=== PATIENT | male | born 1955 | race Caucasian/White ===

== ENCOUNTER 2022-08-10 13:06 | Outpatient (CLI) | payer MEDICARE, MEDICAID, SELFPAY | END 2022-08-10 13:07 | disposition home or self-care (01) | PROVIDERS: PCP Family Medicine; Visit Provider Family Medicine | DX: M25.572 Pain in left ankle and joints of left foot (principal) | CPT/HCPCS: A0425; A0429 ==

== ENCOUNTER 2022-08-10 13:25 | Inpatient (IN) | payer MEDICARE, MEDICAID, SELFPAY ==
[2022-08-10] VITALS (14 sets, daily range): BP systolic 124–146; BP diastolic 72–89; PULSE 67–85; RESP 16–20; TEMP 37.1; O2SAT 97–99; BMI 23.1
--- NOTE | 2022-08-10 14:18 | ED_ITS ---
HPI - General Adult General Time Seen by Provider: 14:18 Date Seen: 08/10/22 Chief complaint: Extremity Pain/Injury, Lower Stated complaint: Infection left leg Time Seen by Provider: 08/10/22 13:41 Source: patient and RN notes reviewed Mode of arrival: EMS Limitations: no limitations History of Present Illness HPI narrative: Patient is coming in with concern of left stump infection with increasing pain and drainage. Over the last 4 days he has noted some bleeding from the inferior aspect of his stump. He is visiting from [place] and admits that he has been up ambulatory and walking more. Last night he started to feel feverish and achy. No headache, no cough, no GI symptoms with this. Today he went to put on his left lower extremity prosthesis and felt like it was wet, took it back off and noted there was blood. He feels that the amputee stump is more swollen and painful. 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 He states he has had revascularization procedures on both lower extremities at least 4 times. The left lower extremity sounds as if it became infected and gangrenous and had to be amputated per patient's report. This happened in [place]. He denies any under lying diabetes, no prior cardiac history, denies any aneurysms. His friend that he is here visiting states that he is quite nervous and frightened about this. Patient tells me that he is not to this patient nor issue relative. Reviewed with patient that he has his ability to maintain his cares, she does not have a sore D to make decision making unless he would so direct us. Related Data Home Medications Medication Instructions Recorded Confirmed amlodipine 10 mg tablet (Norvasc) 10 mg PO DAILY 08/10/22 08/10/22 hydrocodone 5 mg-acetaminophen 325 1 tab PO Q4-6H PRN 08/10/22 08/10/22 mg tablet morphine 30 mg tablet,extended 30 mg PO Q12H 08/10/22 08/10/22 release (MS Contin) pantoprazole 40 mg tablet,delayed 40 mg PO DAILY 08/10/22 08/10/22 release (Protonix) rifaximin 550 mg tablet 550 mg PO BID 08/10/22 08/10/22 Allergies Allergy/AdvReac Type Severity Reaction Status Date / Time No Known Drug Allergies Allergy Verified 08/10/22 13:39 Review of Systems Status of ROS: Reports: 10 or more systems reviewed and unremarkable except as noted in History and below Exam Const: Vital Signs, click to edit/add: Vital Signs - 24 hr 08/10/22 13:31 Temperature 98.7 F Pulse Rate [Pulse Oximeter] 85 Respiratory Rate 20 Blood Pressure [Ri ght Upper Arm] 146/85 H Pulse Oximetry 98 Oxygen Delivery Me thod Room Air Documenting provider has reviewed patient's vital signs: yes Common normals: no apparent distress, oriented x3, no limitations and alert General appearance: cooperative and comfortable Nutritional appearance: thin HENMT: Common normals: normocephalic, head/scalp atraumatic, hearing grossly normal bilaterally, external nose normal, nasal mucous membranes and turbinates normal, moist oral mucous membranes and oropharynx normal Head and scalp: normocephalic and atraumatic Nose: external nose normal and nasal mucous membranes and turbinates normal Eye: Common normals: PERRL, EOMs intact bilaterally, conjunctivae normal and no scleral icterus Conjunctiva: conjunctiva(e) normal Pupil: PERRL Neck & C-Spine: Common normals: full ROM, no lymphadenopathy, supple, no meningeal signs, no JVD and thyroid normal Thyroid: thyroid normal Resp: Common normals: normal respiratory effort, no retractions, no use of accessory muscles and clear to auscultation bilaterally Auscultation: clear to auscultation bilaterally Cardio: Common normals: no JVD, regular rate, regular rhythm, S1 normal heart sound, S2 normal heart sound, no gallops, no clicks and no murmurs Rate: regular rate Rhythm: regular rhythm Heart sounds: S1 normal and S2 normal GI: Common normals: Normal to inspection, nondistended, normoactive bowel sounds present, soft to palpation, non-tender, no hepatosplenomegaly and no masses Palpation: soft and no hepatosplenomegaly Extremity: Other: Has a left lower extremity [id number] amputation. The distal end of this is pink but cooler, along the top edge of that lower flap there is some serosanguineous drainage at the juncture between the reflection of the bottom flap back to the anterior distal stump site. Do not seeing any visible deep tissue here. Superiorly above this there is more warmth and erythema just right around this area. No pre tibial edema above the stump. Has stocking on right lower extremity but there is no pretibial edema that is palpable. Neuro: Common normals: oriented x3, moves all extremities and no focal motor deficits Sensorium/orientation: alert Meningeal signs: no meningeal signs Speech: speech normal Skin: Narrative: Bedoya skin, skin around wound is noted above on the left lower extremity. Course Course Hospital Course: We will establish an IV, obtain blood cultures and appropriate laboratory workup. Will initiate imaging with plain films to see if there is any bony changes of osteomyelitis. I have obtained a culture of the drainage from this distal stump. If there is concern for infection with this patient, he may need to go elsewhere for hospitalization as we really do not have the capacity for revascularization or even adequate testing for such. We will do this initial workup and decide on appropriate further intervention. Reevaluation(s) Reevaluation #1: Have spoken with patient regarding my concern that I fear there is infection starting in this amputee stump. He has gotten his care at [facility] in [place] per report he does give me a card of a medical case manager and a new physician that he is seen. We will make copies of these to see if we can get more medical information on him. Reviewed with the patient that I will be talking to our hospitalist for further guidance is a do think he needs antibiotics and really should come in. Unfortunately, he is extremely difficult to find IV access. We will see if anesthesia can try as 1 of her best nurses was unsuccessful. Our hospitalist is aware of this difficulty and has alternate plans if we are unable to get IV access. Time: 17:10 Consultations Consultation #1: Spoke with Dr. Bernal our evening hospitalist, she agrees that this patient should come in for IV antibiotics and will initiate vancomycin and Zosyn. At this time, I do not feel that there is enough here clinically to necessitate transfer to a higher level of care but that may be necessary if not responding to broad-spectrum IV antibiotics. Time: 17:19 Vital Signs Vital signs: Initial Vital Signs Temperature 98.7 F 08/10/22 13:31 Temperature Source Temporal Artery Scan 08/10/22 13:31 Pulse Rate 85 08/10/22 13:31 Pulse Rhythm 08/10/22 13:31 Respiratory Rate 20 08/10/22 13:31 Blood Pressure 146/85 H 08/10/22 13:31 Blood Pressure Mean 105 08/10/22 13:31 Blood Pressure Position Supine 08/10/22 13:31 Pulse Oximetry 98 08/10/22 13:31 Oxygen Delivery Method 08/10/22 13:31 Vital Signs Temperature 98.7 F 08/10/22 13:31 Pulse Rate 85 08/10/22 13:31 Respiratory Rate 20 08/10/22 13:31 Blood Pressure 146/85 H 08/10/22 13:31 Pulse Oximetry 98 08/10/22 13:31 Oxygen Delivery Method 08/10/22 13:31 Temperature 98.7 F 08/10/22 13:31 Pulse Rate 85 08/10/22 13:31 Respiratory Rate 20 08/10/22 13:31 Blood Pressure 146/85 H 08/10/22 13:31 Pulse Oximetry 98 08/10/22 13:31 Oxygen Delivery Method 08/10/22 13:31 Medical Decision Making Lab Data Lab results reviewed: Yes I reviewed the patient's lab results Labs: Lab Results 08/10/22 08/10/22 08/10/22 Range/Units 15:00 15:00 15:20 WBC 5.39 (4.50-11.00) K/uL RBC 4.09 L (4.30-5.90) m/uL Hgb 13.0 L (13.5-17.5) gm/dL Hct 38.2 (37.0-53.0) % MCV 93 (80-100) fL MCH 32 (26-34) pg MCHC 34 (32-36) gm/dL RDW Coeff of Isabel 14.4 (11.5-15.5) % Plt Count 119 L (140-440) K/uL Neut % (Auto) 77.5 H (42.0-72.0) % Lymph % (Auto) 15.4 L (20-44) % [place] % (Auto) 5.8 (0.0-11.0) % Eos % (Auto) 0.7 (0.0-7.0) % Baso % (Auto) 0.4 (0.0-3.0) % Neut # (Auto) 4.20 (1.7-7.0) K/uL Lymph # (Auto) 0.80 L (0.90-2.90) K/uL [place] # (Auto) 0.30 (0.00-0.90) K/UL Eos # (Auto) 0.04 (0.00-0.50) K/uL Baso # (Auto) 0.02 (0.00-0.30) K/uL Abs Immat Gran (auto) 0.01 (0.00-0.30) K/uL Sodium (135-149) mmol/L Potassium (3.6-5.1) mmol/L Chloride (96-114) mmol/L Carbon Dioxide (20-32) mmol/L BUN (7-30) mg/dL Creatinine (0.5-1.5) mg/dL Estimated Creat Clear Estimated GFR ml/min Glucose (60-115) mg/dL Lactate 1.8 (0.5-1.9) mmol/L Calcium (8.4-10.6) mg/dL Total Bilirubin (0.1-1.5) mg/dL AST (12-35) U/L ALT (4-50) U/L Alkaline Phosphatase (40-150) U/L C-Reactive Protein (0.5-1.0) mg/dL Total Protein (6.0-8.3) g/dL Albumin (3.3-5.0) g/dL Procalcitonin (<0.50) ng/mL SARS-CoV-2 (PCR) Negative SARS-CoV-2 (Negative) 08/10/22 Range/Units 15:40 WBC (4.50-11.00) K/uL RBC (4.30-5.90) m/uL Hgb (13.5-17.5) gm/dL Hct (37.0-53.0) % MCV (80-100) fL MCH (26-34) pg MCHC (32-36) gm/dL RDW Coeff of Isabel (11.5-15.5) % Plt Count (140-440) K/uL Neut % (Auto) (42.0-72.0) % Lymph % (Auto) (20-44) % [place] % (Auto) (0.0-11.0) % Eos % (Auto) (0.0-7.0) % Baso % (Auto) (0.0-3.0) % Neut # (Auto) (1.7-7.0) K/uL Lymph # (Auto) (0.90-2.90) K/uL [place] # (Auto) (0.00-0.90) K/UL Eos # (Auto) (0.00-0.50) K/uL Baso # (Auto) (0.00-0.30) K/uL Abs Immat Gran (auto) (0.00-0.30) K/uL Sodium 132 L (135-149) mmol/L Potassium 4.9 (3.6-5.1) mmol/L Chloride 103 (96-114) mmol/L Carbon Dioxide 21 (20-32) mmol/L BUN 18 (7-30) mg/dL Creatinine 1.1 (0.5-1.5) mg/dL Estimated Creat Clear 72.05 Estimated GFR 74 ml/min Glucose 106 (60-115) mg/dL Lactate (0.5-1.9) mmol/L Calcium 8.7 (8.4-10.6) mg/dL Total Bilirubin 2.1 H (0.1-1.5) mg/dL AST 86 H (12-35) U/L ALT 21 (4-50) U/L Alkaline Phosphatase 275 H (40-150) U/L C-Reactive Protein 2.0 H (0.5-1.0) mg/dL Total Protein 8.7 H (6.0-8.3) g/dL Albumin 4.3 (3.3-5.0) g/dL Procalcitonin 6.03 H (<0.50) ng/mL SARS-CoV-2 (PCR) (Negative) Imaging Data X-ray left tib-fib: Attestation: I have reviewed the pertinent imaging results. My impression: I do not appreciate any acute pathology on my preliminary read. Radiologist's impression: Patient: DELMIS GARRETT Facility:?[facility] Patient ID:?[id number] Site Patient ID:?[id number]. Site :?[id number] Study:?XRay Extremity Left tib/fib-08/10/2022 4:00:04 PM Ordering Physician:Jamila Roberts Final Report: INDICATION: Amputee infection. TECHNIQUE: Left tibia/fibula, 4 views. COMPARISON: None. FINDINGS: Bones: The bones are demineralized. No fractures or bone lesions. Joint spaces: Unremarkable. Soft tissues: Mild diffuse soft tissue swelling and edema. Scattered vascular calcifications. IMPRESSION: No acute or significant findings. Dictated by Darion Goodson MD @ 08/10/2022 4:19:53 PM (Electronic Signature) ECG Data Attestation: I personally reviewed and interpreted this ECG as follows: (Sinus rhythm with PACs. 81 beats per minute. QT corrected 497 milliseconds. No acute ischemic change.) Critical Care Time Critical Care Time Critical Care Time: No Discharge Plan Discharge Clinical Impression: Cellulitis, Peripheral vascular disease Patient Disposition: Admitted As Inpatient Condition: Unchanged
--- NOTE | 2022-08-10 14:27 | CRLHL7_ITS ---
For Patients: As a result of the Cures Act, medical imaging exams and procedure reports are released immediately into your electronic medical record. You may view this report before your referring provider. If you have questions, please contact your health care provider. INDICATION: Amputee infection. TECHNIQUE: Left tibia/fibula, 4 views. COMPARISON: None. FINDINGS: Bones: The bones are demineralized. No fractures or bone lesions. Joint spaces: Unremarkable. Soft tissues: Mild diffuse soft tissue swelling and edema. Scattered vascular calcifications. IMPRESSION: No acute or significant findings. Dictated by Darion Goodson MD @ 08/10/2022 4:19:53 PM (Electronically Signed)
[2022-08-10 15:16] LABS: Basophils Absolute Auto 0.02 K/uL (0.00-0.30); Basophils Percent Auto 0.4 % (0.0-3.0); Eosinophils Absolute Auto 0.04 K/uL (0.00-0.50); Eosinophils Percent Auto 0.7 % (0.0-7.0); Hematocrit 38.2 % (37.0-53.0); Immature Granulocytes Abs Auto 0.01 K/uL (0.00-0.30); Lymphocytes Percent Auto 15.4 % (20-44); Mean Corpuscular HGB Conc 34 gm/dL (32-36); Mean Corpuscular Hemoglobin 32 pg (26-34); Mean Corpuscular Volume 93 fL (80-100); Monocytes Percent Auto 5.8 % (0.0-11.0); Neutrophils Percent Auto 77.5 % (42.0-72.0); Platelet Count* 119 K/uL (140-440); RDW Coefficient of Variation % 14.4 % (11.5-15.5); Red Blood Count 4.09 m/uL (4.30-5.90); White Blood Count* 5.39 K/uL (4.50-11.00)
[2022-08-10 15:19] LABS: Slide Review Reflex No
[2022-08-10 15:24] LABS: Lactate* 1.8 mmol/L (0.5-1.9)
--- NOTE | 2022-08-10 15:47 | ED.NURSE ---
dr chandler aware of inability to start iv. blood has been drawn. is difficult to start ivs on him, but has incredibly poor circulation with chronic disease.
[2022-08-10 15:54] LABS: SARS PCR* Negative SARS-CoV-2 (Negative)
[2022-08-10 16:04] LABS: Albumin* 4.3 g/dL (3.3-5.0); Chloride* 103 mmol/L (96-114)
[2022-08-10 16:05] LABS: Potassium* 4.9 mmol/L (3.6-5.1); Sodium* 132 mmol/L (135-149)
[2022-08-10 16:07] LABS: Creatinine* 1.1 mg/dL (0.5-1.5); Est. Creatinine Clearance* 72.05; Estimated Glomerular Filt Rate 74 ml/min
[2022-08-10 16:08] LABS: Alanine Aminotransferase* 21 U/L (4-50); Alkaline Phosphatase* 275 U/L (40-150); Aspartate Amino Transferase* 86 U/L (12-35); Bilirubin Total* 2.1 mg/dL (0.1-1.5); Blood Urea Nitrogen* 18 mg/dL (7-30); Carbon Dioxide* 21 mmol/L (20-32); Glucose* 106 mg/dL (60-115); Total Protein* 8.7 g/dL (6.0-8.3)
[2022-08-10 16:09] LABS: Calcium* 8.7 mg/dL (8.4-10.6)
[2022-08-10 16:25] LABS: Procalcitonin* 6.03 ng/mL (<0.50)
--- NOTE | 2022-08-10 17:29 | W.PC.EDHO ---
Primary Language: Amharic Preferred Language: Orientation Status: [x] Alert & Oriented [] Slight Confusion [] Known Dx Dementia Transfers By: [x] Assist of 1 [] Assist of 2 [] Lift Description of Symptoms ED Triage Present Problem comes to ed with concerns of a possible infection Description of the stump of his left bka. had an amputation due to gangrene of his left foot 2 years ago, bad circulation hereditary. was walking more than usual on sunday with his prothesis. today noticed increased pain, swelling, redness and warmth of the stump. has an open area that is draining sero- sang drainage on the left stump. ED Triage Date of Onset of 08/07/22 Symptoms Oxygen Administration Pulse Oximetry 98 Oxygen Delivery Method Room Air
--- NOTE | 2022-08-10 17:47 | P.IMHP_ITS ---
Hospitalist- H&P: HPI History of Present Illness Date Seen: 08/10/22 Chief complaint: Infection left leg Narrative: Keith Pitts is a 67 year old male who presented to the emergency room with concerns of infection in his left lower extremity stump. He noted that his stump started leaking about 4 days ago. Has felt subjectively febrile, no other symptoms. No trauma. ER course and findings: - erythema and drainage of an open wound on left stump, cultures collected - normal white blood count, afebrile, elevated procalcitonin at 6 - no acute findings on x-ray History of L foot amputation in 2021, amputation of all 5 toes on the R foot over the past 2-3 years (separate surgeries). Known severe peripheral vascular disease with resultant chronic pain, on daily opiates. Dr. Carlisle in [place], [place] is Vascular Surgeon. Dr. Cris Bobby in [place] was PCP. Also diagnosed with cirrhosis (source unclear), on Rifaximin. History of Hepatitis B and C remotely. History of alcohol overuse, currently no ETOH use. No history of portal HTN, doesn't think he's ever had an EGD. On Amlodipine for essential HTN. Patient smokes socially (0-1 cigarettes most days of the week). 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 No children, not currently partnered. Sister Kanchan Pitts ([phone]) would be medical decision maker if needed. Kanchan lives in [place], [place]. Keith requests DNR/DNI status. Keith is planning to move here, arrived from [place] 2 weeks ago. Was living in a rehab facility in [place], [place] until mid-June, flew to [place] soon after that. Has been staying with his friend Shannon since arrival, hoping to move into [address] [facility] apartments soon. Has an appt with Dr. Swift to establish care on 08/17. [facility] Medical History (Updated 08/10/22 @ 19:17 by Irene Bernal MD) Amputation of one or more toes Atypical mole Chronic pain Cirrhosis of liver Essential hypertension History of fracture of left shoulder Nontraumatic amputation of foot Social History Non-prescribed substance use: denies use Meds Home Medications and Allergies Home Medications Medication Instructions Recorded Confirmed Type amlodipine 10 mg tablet (Norvasc) 10 mg PO DAILY 08/10/22 08/10/22 History hydrocodone 5 mg-acetaminophen 325 1 tab PO Q4-6H PRN 08/10/22 08/10/22 History mg tablet morphine 30 mg tablet,extended 30 mg PO Q12H 08/10/22 08/10/22 History release (MS Contin) pantoprazole 40 mg tablet,delayed 40 mg PO DAILY 08/10/22 08/10/22 History release (Protonix) rifaximin 550 mg tablet 550 mg PO BID 08/10/22 08/10/22 History Allergies Allergy/AdvReac Type Severity Reaction Status Date / Time No Known Drug Allergies Allergy Verified 08/10/22 13:39 Exam Narrative: Exam Narrative: GEN: Alert HEENT: Normal external ears, EOMIs bilaterally, no scleral icterus CV: RRR, No concerning murmurs, rubs, or gallops R: LCTA bilaterally without concerning wheezing, rales, or rhonchi Ext: Bilateral lower extremities with hyperpigmented skin changes consistent with PVD, diminished peripheral pulse over RLE. Right foot not formally examined. Stump on left lower extremity exhibits an open skin wound with mild serosanguineous drainage and surrounding erythema. There is no crepitus around the area, it is moderately tender to palpation. Skin: Atypical nevus noted on chest, 9mm in diameter with irregular borders Neuro: Nonfocal, no resting tremor Psych: Appropriate Const: Vital Signs, click to edit/add: Vital Signs - 24 hr 08/10/22 13:31 Temperature 98.7 F Pulse Rate [Pulse Oximeter] 85 Respiratory Rate 20 Blood Pressure [Ri ght Upper Arm] 146/85 H Pulse Oximetry 98 Oxygen Delivery Me thod Room Air Hospitalist - H&P: Result Labs Labs: Short CBC 08/10/22 Range/Units 15:00 WBC 5.39 (4.50-11.00) K/uL Hgb 13.0 L (13.5-17.5) gm/dL Hct 38.2 (37.0-53.0) % Plt Count 119 L (140-440) K/uL BMP 08/10/22 15:40 Sodium 132 L Potassium 4.9 Chloride 103 Carbon Dioxide 21 BUN 18 Creatinine 1.1 Glucose 106 Calcium 8.7 Liver Function 08/10/22 Range/Units 15:40 Total Bilirubin 2.1 H (0.1-1.5) mg/dL AST 86 H (12-35) U/L ALT 21 (4-50) U/L Alkaline Phosphatase 275 H (40-150) U/L Albumin 4.3 (3.3-5.0) g/dL Assessment and Plan Assessment and plan (1) Wound infection: Status: Acute Assessment and Plan: - Cultures obtained and pending - Start Vancomycin and Zosyn - Wound care consult - Consider MRI pending clinical course (2) Cellulitis: Status: Acute (3) Peripheral vascular disease: Status: Acute Assessment and Plan: - will attempt to obtain outpatient records, consider addition of baby aspirin and statin to current medication regimen upon discharge (4) Cirrhosis of liver: Status: Acute Assessment and Plan: - Continue Rifaximin - Routine outpatient f/u for chronic liver disease, will attempt to obtain outpatient records to obtain some disease clarity (5) Chronic pain: Status: Acute Assessment and Plan: - Continue home medications (6) Atypical mole: Status: Acute Assessment and Plan: - close outpatient f/u Plan - per above - Lovenox for prophylaxis - Patient requests DNR/DNI status
[2022-08-10] MEDS: MORPHINE 30 MG TABLET.ER PO (20:16)
[2022-08-10] MEDS: HYDROCODONE-ACETAMIN 5-325 MG 1 TAB PO (20:17)
--- NOTE | 2022-08-10 20:55 | CRLHL7_ITS ---
For Patients: As a result of the Century Cures Act, medical imaging exams and procedure reports are released immediately into your electronic medical record. You may view this report before your referring provider. If you have questions, please contact your health care provider. Indication: PICC line placement Technique: Grayscale ultrasound of the right basilic vein and right internal jugular vein. IMPRESSION: Ultrasound guidance for right arm PICC line placement. Dictated by Antonio Haley MD @ 08/11/2022 11:07:49 AM (Electronically Signed)
[2022-08-10] MEDS: ENOXAPARIN 40 MG/0.4 ML INJ SUBCUT (21:20)
--- NOTE | 2022-08-10 22:53 | CRLHL7_ITS ---
For Patients: As a result of the Cures Act, medical imaging exams and procedure reports are released immediately into your electronic medical record. You may view this report before your referring provider. If you have questions, please contact your health care provider. INDICATION: PICC placement. TECHNIQUE: Chest 1 views. COMPARISON: None. FINDINGS: Lines and tubes: Right approach PICC has its tip at the atrial caval junction. Lungs: Clear lungs. No consolidation. Pleura: No pleural effusion or pneumothorax. Heart and Mediastinum: The cardiomediastinal silhouette is normal. The vessels are unremarkable. Bones: Unremarkable. IMPRESSION: No acute cardiopulmonary disease. Dictated by Darion Goodson MD @ 08/10/2022 11:25:40 PM (Electronically Signed)
[2022-08-11] VITALS (7 sets, daily range): BP systolic 129–147; BP diastolic 70–80; PULSE 67–74; RESP 12–16; TEMP 36.6–36.9; O2SAT 93–100; BMI 23.0
[2022-08-11] MEDS: PIPERACILLIN/TAZOBACTAM 3.375 GM in 0.9 % SODIUM CHLORIDE Mini-bag 100 ML IVPB ×4 (00:17→23:40)
--- NOTE | 2022-08-11 06:55 | PC.NURSE ---
pt cooperative. [id number]. No c/o pain, stated he was comfortable. Pt stated he is unable to apply weight to his right leg, and refused to pivot transfer. Pt uses urinal. Bilat LE reddened and dry. Left stump wrapped with Tefla and kerlix, CDI. Afebrile.
[2022-08-11 07:15] LABS: Basophils Percent Auto 0.7 % (0.0-3.0); Eosinophils Percent Auto 2.2 % (0.0-7.0); Hematocrit 33.4 % (37.0-53.0); Hemoglobin* 11.3 gm/dL (13.5-17.5); Lymphocytes Percent Auto 34.1 % (20-44); Mean Corpuscular HGB Conc 34 gm/dL (32-36); Mean Corpuscular Hemoglobin 32 pg (26-34); Mean Corpuscular Volume 94 fL (80-100); Monocytes Percent Auto 8.1 % (0.0-11.0); Neutrophils Percent Auto 54.9 % (42.0-72.0); Platelet Count* 108 K/uL (140-440); RDW Coefficient of Variation % 14.4 % (11.5-15.5); Red Blood Count 3.54 m/uL (4.30-5.90)
[2022-08-11 07:20] LABS: Slide Review Reflex No
[2022-08-11] MEDS: MORPHINE 30 MG TABLET.ER PO ×2 (07:22→19:52)
[2022-08-11 07:31] LABS: Albumin* 2.9 g/dL (3.3-5.0); Chloride* 105 mmol/L (96-114); Sodium* 136 mmol/L (135-149)
[2022-08-11 07:32] LABS: Potassium* 3.6 mmol/L (3.6-5.1)
[2022-08-11 07:34] LABS: Alanine Aminotransferase* 14 U/L (4-50); Alkaline Phosphatase* 229 U/L (40-150); Aspartate Amino Transferase* 37 U/L (12-35); Blood Urea Nitrogen* 19 mg/dL (7-30); Carbon Dioxide* 27 mmol/L (20-32); Creatinine* 1.2 mg/dL (0.5-1.5); Est. Creatinine Clearance* 66.04; Estimated Glomerular Filt Rate 67 ml/min; Glucose* 84 mg/dL (60-115); Total Protein* 6.2 g/dL (6.0-8.3)
[2022-08-11 07:35] LABS: Calcium* 8.1 mg/dL (8.4-10.6)
[2022-08-11] MEDS: HYDROCODONE-ACETAMIN 5-325 MG 1 TAB PO ×3 (08:11→21:17)
[2022-08-11] MEDS: OMEPRAZOLE 20 MG CAPSULE DR 40 MG PO (08:49)
[2022-08-11] MEDS: AMLODIPINE 10 MG TABLET PO (08:49)
[2022-08-11] MEDS: RIFAXIMIN 550 MG PO ×2 (08:50→21:16)
--- NOTE | 2022-08-11 10:19 | CRLHL7_ITS ---
For Patients: As a result of the Cures Act, medical imaging exams and procedure reports are released immediately into your electronic medical record. You may view this report before your referring provider. If you have questions, please contact your health care provider. HISTORY: History of previous amputation. Now with open wound and drainage. TECHNIQUE: Routine ankle protocol. FINDINGS: There are no previous studies for comparison. There has been previous amputation in the junction between the midfoot and hindfoot. There is a likely soft tissue wound or contracture seen along the anterior portion of the stump overlying the region of the distal talus. In this vicinity there is increased T2 signal intensity in the soft tissues as well as the distal talus with corresponding T1 signal abnormality. These findings are consistent with osteomyelitis of the distal talus. There is additional bone marrow edema in the distal calcaneus which could also represent an additional site of osteomyelitis but this appears further from the wound in the talus. Lastly there is marrow edema in the distal tibia but this is not adjacent to the wound and is of uncertain significance. No soft tissue fluid collection is noted to suggest abscess. No ankle or subtalar joint effusion is noted. IMPRESSION: Evidence for cellulitis and apparent soft tissue wound anteriorly. There are findings consistent with osteomyelitis of the distal talus and possibly the calcaneus. No findings for soft tissue abscess. Dictated by Joni Shah MD @ 08/11/2022 1:17:15 PM (Electronically Signed)
--- NOTE | 2022-08-11 11:13 | P.IMPN_ITS ---
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 Cox's advice to avoid prostetics, do wet/dry dressings and have patient f/u with wound care as outpatient next week, pending MRI results. * Obtain MRI L ankle/foot * Continue vanco/zosyn, monitor CBC with recheck in am. Also recheck CRP in am. Does not appear septic at this time. Await MRI results and wound culture results. * PT/OT to eval and treat, work with patient to use crutches so he can avoid use of * Continue low dose lovenox for VTE prophylaxis, monitor Plt count and d/c lovenox if plt <80. * CKD stable. Monitor Cr daily while on vanco/zosyn combo. * Cirrhosis, has elevated LFTs with some improvement overnight. Keep outpatient f/u with GI in a few weeks. Subjective Time Seen by Provider: 09:45 Date Seen: 08/11/22 Interval history: C/o feeling weak today. Pain in left stump is about the same. No other complaints. EXAM General: No acute distress. Does not appear ill. Awake, alert, oriented x3. Very hard of hearing without hearing aids. Able to hear normal voice volume with hearing aids. No pallor. No jaundice. Oropharynx: Clear. Mucous membranes moist. Cardiovascular: Regular rate and rhythm. No murmurs, gallops, or rubs. Respiratory: Clear to auscultation bilaterally. No wheezes or crackles. Abdomen: Bowel sounds present. Soft, nondistended, nontender. Extremities: Bilateral lower extremity venous stasis changes with hyperpigmentation circumferentially around both shins and calves. Right foot has well-healed surgical absence of all toes with some small lense-shaped open areas along otherwise well-healed surgical scars of the foot. There is no drainage from these and no erythema or purulence. No tenderness to palpation of this foot. Left stump is bandaged, these were removed and there is a 3-4 cm open area anteriorly along a surgical scar that is frankly purulent with no fluctuance. Mild erythema and tenderness around wound, especially inferiorly. Exam Const: Vital Signs, click to edit/add: Vital Signs - 24 hr 08/10/22 13:31 08/10/22 14:00 08/10/22 14:30 Temperature 98.7 F Pulse Rate [Pulse Oximeter] 85 76 78 Respiratory Rate 20 18 18 Blood Pressure [Le ft Arm] Blood Pressure [Ri ght Upper Arm] 146/85 H 134/74 127/79 Pulse Oximetry 98 97 [facility] Room [facility] 08/10/22 15:00 08/10/22 15:30 08/10/22 16:00 Temperature Pulse Rate [Pulse Oximeter] 76 79 Respiratory Rate 16 16 Blood Pressure [Le ft Arm] Blood Pressure [Ri ght Upper Arm] 128/75 143/85 H 135/77 Pulse Oximetry 99 [facility] 08/10/22 16:30 08/10/22 17:00 08/10/22 17:30 Temperature Pulse Rate [Pulse Oximeter] 79 71 Respiratory Rate 18 16 Blood Pressure [Le ft Arm] Blood Pressure [Ri ght Upper Arm] 146/81 H 124/74 130/72 Pulse Oximetry 98 97 [facility] Room Air 08/10/22 18:00 08/10/22 18:30 08/10/22 13:45 Temperature Pulse Rate [Pulse Oximeter] 74 78 Respiratory Rate 16 Blood Pressure [Le ft Arm] Blood Pressure [Ri ght Upper Arm] 137/89 129/74 Pulse Oximetry 99 99 98 [facility] Room Air 08/10/22 21:05 08/11/22 03:00 08/10/22 23:00 Temperature 98.7 F 98.5 F Pulse Rate [Pulse Oximeter] 71 67 67 Respiratory Rate 16 16 Blood Pressure [Le ft Arm] 139/77 137/70 Blood Pressure [Ri ght Upper Arm] Pulse Oximetry 99 93 Oxygen Delivery Me thod Room Air Room Air 08/11/22 07:00 08/11/22 07:00 Temperature 98 F Pulse Rate [Pulse Oximeter] 72 72 Respiratory Rate 12 12 Blood Pressure [Le ft Arm] 131/73 Blood Pressure [Ri ght Upper Arm] Pulse Oximetry 96 Oxygen Delivery Me thod Room Air Documenting provider has reviewed patient's vital signs: yes Labs Labs: Laboratory Results - last 24 hr 08/10/22 08/10/22 08/10/22 15:00 15:00 15:20 WBC 5.39 RBC 4.09 L Hgb 13.0 L Hct 38.2 MCV 93 MCH 32 MCHC 34 RDW Coeff of Isabel 14.4 Plt Count 119 L Neut % (Auto) 77.5 H Lymph % (Auto) 15.4 L [place] % (Auto) 5.8 Eos % (Auto) 0.7 Baso % (Auto) 0.4 Neut # (Auto) 4.20 Lymph # (Auto) 0.80 L [place] # (Auto) 0.30 Eos # (Auto) 0.04 Baso # (Auto) 0.02 Abs Immat Gran (auto) 0.01 Sodium Potassium Chloride Carbon Dioxide BUN Creatinine Estimated Creat Clear Estimated GFR Glucose Lactate 1.8 Calcium Total Bilirubin AST ALT Alkaline Phosphatase C-Reactive Protein Total Protein Albumin Procalcitonin SARS-CoV-2 (PCR) Negative SARS-CoV-2 08/10/22 08/11/22 08/11/22 15:40 06:15 06:15 WBC 2.70 L RBC 3.54 L Hgb 11.3 L Hct 33.4 L MCV 94 MCH 32 MCHC 34 RDW Coeff of Isabel 14.4 Plt Count 108 L Neut % (Auto) 54.9 Lymph % (Auto) 34.1 [place] % (Auto) 8.1 Eos % (Auto) 2.2 Baso % (Auto) 0.7 Neut # (Auto) 1.50 L Lymph # (Auto) 0.90 [place] # (Auto) 0.20 Eos # (Auto) 0.10 Baso # (Auto) 0.00 Abs Immat Gran (auto) 0.00 Sodium 132 L 136 Potassium 4.9 3.6 Chloride 103 105 Carbon Dioxide 21 27 BUN 18 19 Creatinine 1.1 1.2 Estimated Creat Clear 72.05 66.04 Estimated GFR 74 67 Glucose 106 84 Lactate Calcium 8.7 8.1 L Total Bilirubin 2.1 H 1.0 AST 86 H 37 H ALT 21 14 Alkaline Phosphatase 275 H 229 H C-Reactive Protein 2.0 H Total Protein 8.7 H 6.2 Albumin 4.3 2.9 L Procalcitonin 6.03 H SARS-CoV-2 (PCR)
--- NOTE | 2022-08-11 13:10 | P.GSCN_ITS ---
History of Present Illness Consult details Date Seen: 08/11/22 Consult date: 08/11/22 Narrative: 67-year-old male was admitted to the hospital with left lower leg wound and I was asked by Dr. Stone to see him in consultation. Patient states that he recently moved to [place] from [place]. He used to ride a scooter for mobility but since his friend has a lot of rugs on the floor, patient was forced to wear his left leg prosthesis. Patient is fairly new to this left leg prosthesis. He states that he started to notice pain at his left lower leg stump about 4 days ago. Patient had a left foot amputation over 2 years ago. This was done for gangrene and infection. Patient has bilateral peripheral vascular disease and also had right toes amputated. He had RFA procedures to revascularize his blood supply in bilateral lower legs. Review of Systems Narrative: General: no fevers HENT: no problems swallowing CV: no shortness of breath Resp: no cough GI: No nausea, vomiting, abdominal pain : no dysuria, no increased urinary frequency, no hematuria Skin: See above Musculoskeletal: no back pain Neuro: Patient can pivot on the right leg and overall denies muscle weakness. However needs help with mobility. Psyche: no depression, no anxiety PFSH PFSH Medical History (Updated 08/11/22 @ 13:18 by David Cox MD) Amputation of one or more toes Atypical mole Chronic pain Cirrhosis of liver Essential hypertension History of fracture of left shoulder Nontraumatic amputation of foot Wound of left foot Surgical History (Updated 08/11/22 @ 13:15 by David Cox MD) Hx of vascular surgery S/P amputation of foot Social History Smoking Status: Never smoker Do you use any of these nicotine containing products: None How often do you have a drink containing alcohol: never AUDIT-C Alcohol total score: 0 Non-prescribed substance use: denies use Caffeine: Yes (2 sodas/day) service: Yes Meds Home Medications and Allergies Home Medications Medication Instructions Recorded Confirmed Type amlodipine 10 mg tablet (Norvasc) 10 mg PO DAILY 08/10/22 08/10/22 History hydrocodone 5 mg-acetaminophen 325 1 tab PO Q4-6H PRN 08/10/22 08/10/22 History mg tablet morphine 30 mg tablet,extended 30 mg PO Q8H 08/10/22 08/11/22 History release (MS Contin) pantoprazole 40 mg tablet,delayed 40 mg PO DAILY 08/10/22 08/10/22 History release (Protonix) rifaximin 550 mg tablet 550 mg PO BID 08/10/22 08/10/22 History ferrous sulfate 325 mg (65 mg 325 mg PO Q OTHER DAY 08/11/22 08/11/22 History iron) tablet (Lexa-Time) lactulose 10 gram/15 mL oral 30 g PO BID PRN 08/11/22 08/11/22 History solution (Enulose) Allergies Allergy/AdvReac Type Severity Reaction Status Date / Time No Known Drug Allergies Allergy Verified 08/10/22 13:39 Exam Narrative: Exam Narrative: General appearance: Alert, cooperative, and in no distress Pulmonary: Chest symmetric, breathing is nonlabored Extremities: In bilateral lower extremities there is skin discoloration from venous stasis. The right lower leg is sensitive to palpation. The right foot with well-healed surgical incision s/p toe amputation. There is no cellulitis noted in the right leg. The left leg amputation incision has an open area anteriorly. The open areas approximately 1.5 x 0.8 cm. I am able to palpate the bone anteriorly. There is no soft tissue coverage over the bone. The tissues superior to the wound are edematous with some hyperemia. Psychiatric: Alert, cooperative, normal affect. Const: Vital Signs, click to edit/add: Vital Signs - 24 hr 08/10/22 13:31 08/10/22 14:00 08/10/22 14:30 Temperature 98.7 F Pulse Rate [Pulse Oximeter] 85 76 78 Respiratory Rate 20 18 18 Blood Pressure [Le ft Arm] Blood Pressure [Ri ght Upper Arm] 146/85 H 134/74 127/79 Pulse Oximetry 98 97 98 Oxygen Delivery Me thod Room Air Room Air Room Air 08/10/22 15:00 08/10/22 15:30 08/10/22 16:00 Temperature Pulse Rate [Pulse Oximeter] 76 79 Respiratory Rate 16 16 Blood Pressure [Le ft Arm] Blood Pressure [Ri ght Upper Arm] 128/75 143/85 H 135/77 Pulse Oximetry 99 Oxygen Delivery Me thod Room Air 08/10/22 16:30 08/10/22 17:00 08/10/22 17:30 Temperature Pulse Rate [Pulse Oximeter] 79 71 Respiratory Rate 18 16 Blood Pressure [Le ft Arm] Blood Pressure [Ri ght Upper Arm] 146/81 H 124/74 130/72 Pulse Oximetry 98 97 Oxygen Delivery Me thod Room Air Room Air 08/10/22 18:00 08/10/22 18:30 08/10/22 13:45 Temperature Pulse Rate [Pulse Oximeter] 74 78 Respiratory Rate 16 Blood Pressure [Le ft Arm] Blood Pressure [Ri ght Upper Arm] 137/89 129/74 Pulse Oximetry 99 99 98 Oxygen Delivery Me thod Room Air Room Air 08/10/22 21:05 08/11/22 03:00 08/10/22 23:00 Temperature 98.7 F 98.5 F Pulse Rate [Pulse Oximeter] 71 67 67 Respiratory Rate 16 16 Blood Pressure [Le ft Arm] 139/77 137/70 Blood Pressure [Ri ght Upper Arm] Pulse Oximetry 99 93 Oxygen Delivery Wa thod Room Air Room Air 08/11/22 07:00 08/11/22 07:00 08/11/22 11:00 Temperature 98 F 98 F Pulse Rate [Pulse Oximeter] 72 72 70 Respiratory Rate 12 12 14 Blood Pressure [Le ft Arm] 131/73 129/70 Blood Pressure [Ri ght Upper Arm] Pulse Oximetry 96 100 Oxygen Delivery Me thod Room Air Room Air Results Labs Labs: Abnormal lab results 08/10/22 08/10/22 08/11/22 Range/Units 15:00 15:40 06:15 WBC 2.70 L (4.50-11.00) K/uL RBC 4.09 L 3.54 L (4.30-5.90) m/uL Hgb 13.0 L 11.3 L (13.5-17.5) gm/dL Hct 33.4 L (37.0-53.0) % Plt Count 119 L 108 L (140-440) K/uL Neut % (Auto) 77.5 H (42.0-72.0) % Lymph % (Auto) 15.4 L (20-44) % Neut # (Auto) 1.50 L (1.7-7.0) K/uL Lymph # (Auto) 0.80 L (0.90-2.90) K/uL Sodium 132 L (135-149) mmol/L Calcium (8.4-10.6) mg/dL Total Bilirubin 2.1 H (0.1-1.5) mg/dL AST 86 H (12-35) U/L Alkaline Phosphatase 275 H (40-150) U/L C-Reactive Protein 2.0 H (0.5-1.0) mg/dL Total Protein 8.7 H (6.0-8.3) g/dL Albumin (3.3-5.0) g/dL Procalcitonin 6.03 H (<0.50) ng/mL 08/11/22 Range/Units 06:15 WBC (4.50-11.00) K/uL RBC (4.30-5.90) m/uL Hgb (13.5-17.5) gm/dL Hct (37.0-53.0) % Plt Count (140-440) K/uL Neut % (Auto) (42.0-72.0) % Lymph % (Auto) (20-44) % Neut # (Auto) (1.7-7.0) K/uL Lymph # (Auto) (0.90-2.90) K/uL Sodium (135-149) mmol/L Calcium 8.1 L (8.4-10.6) mg/dL Total Bilirubin (0.1-1.5) mg/dL AST 37 H (12-35) U/L Alkaline Phosphatase 229 H (40-150) U/L C-Reactive Protein (0.5-1.0) mg/dL Total Protein (6.0-8.3) g/dL Albumin 2.9 L (3.3-5.0) g/dL Procalcitonin (<0.50) ng/mL Diabetes panel 08/10/22 08/11/22 Range/Units 15:40 06:15 Sodium 132 L 136 (135-149) mmol/L Potassium 4.9 3.6 (3.6-5.1) mmol/L Chloride 103 105 (96-114) mmol/L Carbon Dioxide 21 27 (20-32) mmol/L BUN 18 19 (7-30) mg/dL Creatinine 1.1 1.2 (0.5-1.5) mg/dL Glucose 106 84 (60-115) mg/dL Calcium 8.7 8.1 L (8.4-10.6) mg/dL AST 86 H 37 H (12-35) U/L ALT 21 14 (4-50) U/L Alkaline Phosphatase 275 H 229 H (40-150) U/L Total Protein 8.7 H 6.2 (6.0-8.3) g/dL Albumin 4.3 2.9 L (3.3-5.0) g/dL Calcium panel 08/10/22 08/11/22 Range/Units 15:40 06:15 Calcium 8.7 8.1 L (8.4-10.6) mg/dL Albumin 4.3 2.9 L (3.3-5.0) g/dL Pituitary panel 08/10/22 08/11/22 Range/Units 15:40 06:15 Sodium 132 L 136 (135-149) mmol/L Potassium 4.9 3.6 (3.6-5.1) mmol/L Chloride 103 105 (96-114) mmol/L Carbon Dioxide 21 27 (20-32) mmol/L BUN 18 19 (7-30) mg/dL Creatinine 1.1 1.2 (0.5-1.5) mg/dL Glucose 106 84 (60-115) mg/dL Calcium 8.7 8.1 L (8.4-10.6) mg/dL Adrenal panel 08/10/22 08/11/22 Range/Units 15:40 06:15 Sodium 132 L 136 (135-149) mmol/L Potassium 4.9 3.6 (3.6-5.1) mmol/L Chloride 103 105 (96-114) mmol/L Carbon Dioxide 21 27 (20-32) mmol/L BUN 18 19 (7-30) mg/dL Creatinine 1.1 1.2 (0.5-1.5) mg/dL Glucose 106 84 (60-115) mg/dL Calcium 8.7 8.1 L (8.4-10.6) mg/dL Total Bilirubin 2.1 H 1.0 (0.1-1.5) mg/dL AST 86 H 37 H (12-35) U/L ALT 21 14 (4-50) U/L Alkaline Phosphatase 275 H 229 H (40-150) U/L Total Protein 8.7 H 6.2 (6.0-8.3) g/dL Albumin 4.3 2.9 L (3.3-5.0) g/dL All other labs normal. Assessment and Plan Assessment and plan (1) S/P amputation of foot: Problem comment: Left foot amputation and right toes amputation. Status: Acute Plan 67-year-old male with history of peripheral vascular disease, right toes amputation, and left foot amputation presents with the left open wound in the middle of his surgical incision. Patient's wound has minimal yellow slough. I am able to palpate the bone with no soft tissue coverage. The bone is soft concerning for osteomyelitis. Patient's WBC went down to lower than normal today. Patient is on Zosyn and vanco. Patient's MRI showed no evidence of soft tissue abscess but evidence of osteomyelitis. For now I would recommend doing wet to dry dressings to his wound. He should continue with IV antibiotics. This patient would be a good candidate for wound clinic at the [facility] and possible [facility].
--- NOTE | 2022-08-11 14:49 | P.EN_ITS ---
Chart Event Note Time Seen by Provider: 14:50 Date Seen: 08/11/22 Chart Event Note: 67-year-old male seen for infection of left midfoot amputation. Patient had a left midfoot amputation November 2019 in [place]. He does not recall the events around this as he apparently had gangrene and the surgery was apparently relatively emergent. It looks like he has had a Chopart amputation of his left foot. He was in a rehab facility in [facility] since his amputation until about a month ago. He got fitted with a prosthesis and moved to [place] to be with his friend. He has been walking on his foot quite a bit more and the skin is broken down and he has now gotten infection. He just underwent an MRI of his foot which shows osteomyelitis in the talus. Right foot has a transmetatarsal amputation. I reviewed with this patient that this is a concerning finding. I indicated that osteomyelitis requires long-term IV antibiotics in most cases. The alternative would be a [id number] amputation which is likely to heal better and have a better long-term outcome than his Chopart amputation. Either way he is likely to require intermediate placement again for his treatment and recovery. I will discuss with surgery the plan of care for this.
--- NOTE | 2022-08-11 19:00 | PC.NURSE ---
End of Shift: Patient naylor at times but cooperative. Patient vitally stable, lungs clear, BS WNL, PICC SL, patent and intact. Patient is 1 assist, walker, gb to the commode. Patient always rates pain 7/10, scheduled morphine given and 1 norco tab given x2, patient did decline norco once when offered. Patients left foot wound dressed with mesalt, gauze, and 2 large bandaids, wound C/D/I.
[2022-08-11] MEDS: ENOXAPARIN 40 MG/0.4 ML INJ SUBCUT (21:16)
[2022-08-11] MEDS: SODIUM CHLORIDE 0.9 % (FLUSH) 10 ML SYRINGE 5 ML IVF (21:17)
[2022-08-12 03:00] VITALS: BP 139/77; PULSE 61; RESP 16; TEMP 36.1; O2SAT 100
--- NOTE | 2022-08-12 06:31 | PC.NURSE ---
Alert and oriented x4. No new neuro changes noted. pain managed with Scheduled Morphine and PRN Inwood. Inwood administered x1 overnight. Slept through the night except during assessments. Using bedside urinal so did not get out of the bed overnight. Afebrile and rest vital signs stable.
[2022-08-12 07:00] VITALS: BP 135/77; PULSE 68; RESP 14; TEMP 36.5; O2SAT 97
[2022-08-12 07:09] LABS: Basophils Percent Auto 0.6 % (0.0-3.0); Eosinophils Percent Auto 2.9 % (0.0-7.0); Hematocrit 33.5 % (37.0-53.0); Hemoglobin* 11.2 gm/dL (13.5-17.5); Immature Granulocytes Abs Auto 0.01 K/uL (0.00-0.30); Lymphocytes Percent Auto 27.2 % (20-44); Mean Corpuscular HGB Conc 33 gm/dL (32-36); Mean Corpuscular Hemoglobin 32 pg (26-34); Mean Corpuscular Volume 95 fL (80-100); Monocytes Percent Auto 6.7 % (0.0-11.0); Neutrophils Percent Auto 62.3 % (42.0-72.0); Platelet Count* 97 K/uL (140-440); RDW Coefficient of Variation % 14.4 % (11.5-15.5); Red Blood Count 3.52 m/uL (4.30-5.90); White Blood Count* 3.12 K/uL (4.50-11.00)
[2022-08-12 07:12] LABS: Slide Review Reflex No
[2022-08-12 07:32] LABS: Albumin* 2.9 g/dL (3.3-5.0); Chloride* 109 mmol/L (96-114); Sodium* 136 mmol/L (135-149)
[2022-08-12 07:33] LABS: Potassium* 3.8 mmol/L (3.6-5.1)
[2022-08-12 07:35] LABS: Bilirubin Total* 0.6 mg/dL (0.1-1.5); Creatinine* 1.2 mg/dL (0.5-1.5); Est. Creatinine Clearance* 66.04; Estimated Glomerular Filt Rate 67 ml/min
[2022-08-12 07:36] LABS: Alanine Aminotransferase* 13 U/L (4-50); Alkaline Phosphatase* 227 U/L (40-150); Aspartate Amino Transferase* 34 U/L (12-35); Blood Urea Nitrogen* 19 mg/dL (7-30); Carbon Dioxide* 26 mmol/L (20-32); Glucose* 90 mg/dL (60-115); Total Protein* 6.1 g/dL (6.0-8.3)
[2022-08-12 07:39] LABS: C Reactive Protein* 1.9 mg/dL (0.5-1.0)
[2022-08-12] MEDS: SODIUM CHLORIDE 0.9 % (FLUSH) 10 ML SYRINGE 5 ML IVF ×3 (07:40→20:48)
[2022-08-12] MEDS: PIPERACILLIN/TAZOBACTAM 3.375 GM in 0.9 % SODIUM CHLORIDE Mini-bag 100 ML IVPB ×2 (07:42→16:16)
[2022-08-12] MEDS: 0.9 % SODIUM CHLORIDE 250 ml IV (07:42)
[2022-08-12] MEDS: MORPHINE 30 MG TABLET.ER PO ×2 (07:42→19:32)
[2022-08-12] MEDS: OMEPRAZOLE 20 MG CAPSULE DR 40 MG PO (09:23)
[2022-08-12] MEDS: HYDROCODONE-ACETAMIN 5-325 MG 1 TAB PO ×2 (09:23→20:46)
[2022-08-12] MEDS: RIFAXIMIN 550 MG PO ×2 (09:23→20:47)
[2022-08-12] MEDS: AMLODIPINE 10 MG TABLET PO (09:23)
[2022-08-12 11:00] VITALS: BP 136/71; PULSE 61; RESP 12; TEMP 36.4; O2SAT 99
--- NOTE | 2022-08-12 14:34 | PM.IMPN1 ---
Progress Note: A&P Assessment and plan (1) Osteomyelitis of left foot: Problem details: MRI shows osteomyelitis of the talus in his foot amputation. He will need vascular surgery involvement to determine if this foot can be salvaged. Per General surgery here he will need vascular surgery to determine if he is even a candidate for a BKA. For now he will be treated with IV antibiotics with the long-term plan about outpatient follow-up and decision about what of his left lower extremity can be salvaged Status: Acute (2) CKD (chronic kidney disease) stage 2, GFR 60-89 ml/min: Problem details: baseline Cr 1.1 Status: Acute (3) Pancytopenia, acquired: Problem details: Likely chronic related to chronic liver disease. Follow inpatient and then outpatient evaluation Status: Acute (4) History of Chopart amputation of left foot: Problem details: I am doubtful that he will be able to walk on his current amputation with his current prosthesis. While he is being treated this will need to be nonweightbearing. Likely will need halfway again. Status: Chronic Plan Continue in hospital for IV antibiotics and management with planned discharge for ongoing outpatient treatment. Time Spent With Patient Total time spent: Total time spent today is 40 minutes, 30 minutes in coordination of care discussed with patient and other providers ongoing management of osteomyelitis of left foot Subjective Date Seen: 08/12/22 Interval history: 67-year-old male seen in followup of osteomyelitis of his left foot. Brief history: Patient had a left midfoot amputation November 2019 in [place].? He does not recall the events around this as he apparently had gangrene and the surgery was apparently relatively emergent.? It looks like he has had a Chopart amputation of his left foot.? He was in a rehab facility in [facility] since his amputation until about a month ago.? He was nonweightbearing until the beginning of May. He got fitted with a prosthesis at the beginning of May and learn to walk on it over the next month and moved to [place] to be with his friend.? He has been walking on his foot quite a bit more and the skin is broken down and he has now gotten infection.? He just underwent an MRI of his foot which shows osteomyelitis in the talus.? Right foot has a transmetatarsal amputation. He has had vascular surgery evaluation in [place] and he thinks they told them that they have done all they can do. I reviewed with this patient that this is a concerning finding. Exam Narrative: Exam Narrative: He is alert in no distress. He is oriented to his circumstances. Left lower extremity is examined. Amputation site is examined. In the incision itself he has no significant erythema. He does have drainage of a serosanguineous fluid. This is skin around there is not erythematous or tender. Const: Vital Signs, click to edit/add: Vital Signs - 24 hr 08/11/22 15:00 08/11/22 15:00 08/11/22 19:00 Temperature 97.9 F 98 F Pulse Rate [Pulse Oximeter] 73 73 74 Respiratory Rate 14 14 16 Blood Pressure [Le ft Arm] 130/70 139/79 Pulse Oximetry 100 100 Oxygen Delivery Me thod Room Air Room Air 08/11/22 22:52 08/11/22 23:00 08/12/22 03:00 Temperature 98 F 97 F L Pulse Rate [Pulse Oximeter] 74 69 61 Respiratory Rate 16 16 16 Blood Pressure [Le ft Arm] 147/80 H 139/77 Pulse Oximetry 100 100 Oxygen Delivery Me thod Room Air Room Air 08/12/22 07:00 08/12/22 07:00 08/12/22 11:00 Temperature 97.7 F 97.6 F Pulse Rate [Pulse Oximeter] 68 68 61 Respiratory Rate 14 14 12 Blood Pressure [Le ft Arm] 135/77 136/71 Pulse Oximetry 97 99 Oxygen Delivery Me thod Room Air Room Air Documenting provider has reviewed patient's vital signs: yes Labs Labs: Laboratory Results - last 24 hr 08/12/22 08/12/22 06:20 06:20 WBC 3.12 L RBC 3.52 L Hgb 11.2 L Hct 33.5 L MCV 95 MCH 32 MCHC 33 RDW Coeff of Isabel 14.4 Plt Count 97 L Neut % (Auto) 62.3 Lymph % (Auto) 27.2 [place] % (Auto) 6.7 Eos % (Auto) 2.9 Baso % (Auto) 0.6 Neut # (Auto) 1.90 Lymph # (Auto) 0.80 L [place] # (Auto) 0.20 Eos # (Auto) 0.10 Baso # (Auto) 0.00 Abs Immat Gran (auto) 0.01 Sodium 136 Potassium 3.8 Chloride 109 Carbon Dioxide 26 BUN 19 Creatinine 1.2 Estimated Creat Clear 66.04 Estimated GFR 67 Glucose 90 Calcium 8.0 L Total Bilirubin 0.6 AST 34 ALT 13 Alkaline Phosphatase 227 H C-Reactive Protein 1.9 H Total Protein 6.1 Albumin 2.9 L
[2022-08-12 15:00] VITALS: BP 119/69; PULSE 68; RESP 12; TEMP 36.3; O2SAT 100
--- NOTE | 2022-08-12 18:44 | PC.NURSE ---
End of Shift: Patient cooperative and vitally stable. Lungs clear, BS WNL, PICC SL and intact. Lactulose was ordered today as patient has not had a BM in several days and patient takes med every other day. Patient has rated pain minimum 6/10, schedule morphine given and 1 norco administered today, principal technical writer has only given norco upon request. Patient's wound dressing changed, old gauze had yellow dried drainage. Dressing change performed wet to dry using Mesalt strip, 4x4 gauze, and 2 large band aids. Patient tolerating regular diet, not with big appetite, did have 1 enlive today. Patient urinating, no BM. Patient 1 assist, walker, and pivot, and spent little time in chair today.
[2022-08-12 19:00] VITALS: BP 132/81; PULSE 68; RESP 16; TEMP 36.4; O2SAT 98
[2022-08-12] MEDS: ENOXAPARIN 40 MG/0.4 ML INJ SUBCUT (20:47)
[2022-08-12 23:00] VITALS: BP 127/71; PULSE 72; RESP 16; TEMP 36.4; O2SAT 98
[2022-08-13] MEDS: PIPERACILLIN/TAZOBACTAM 3.375 GM in 0.9 % SODIUM CHLORIDE Mini-bag 100 ML IVPB (00:08)
[2022-08-13 03:00] VITALS: BP 125/71; PULSE 65; RESP 16; TEMP 36.4; O2SAT 98
--- NOTE | 2022-08-13 06:05 | PC.NURSE ---
No new neuro changes noted. Patient afebrile and stable vitals noted. Pain rated 6-8/10 overnight. Intermittent facial grimacing while in the room. Abx administered as per order. No further concerns for the night
[2022-08-13 07:00] VITALS: BP 146/77; PULSE 62; RESP 16; TEMP 36.4; O2SAT 95
[2022-08-13 07:46] LABS: Basophils Percent Auto 0.3 % (0.0-3.0); Eosinophils Percent Auto 2.2 % (0.0-7.0); Hematocrit 33.6 % (37.0-53.0); Hemoglobin* 11.3 gm/dL (13.5-17.5); Immature Granulocytes Abs Auto 0.01 K/uL (0.00-0.30); Lymphocytes Percent Auto 27.8 % (20-44); Mean Corpuscular HGB Conc 34 gm/dL (32-36); Mean Corpuscular Hemoglobin 32 pg (26-34); Mean Corpuscular Volume 94 fL (80-100); Monocytes Percent Auto 6.6 % (0.0-11.0); Neutrophils Percent Auto 62.8 % (42.0-72.0); Platelet Count* 73 K/uL (140-440); RDW Coefficient of Variation % 14.6 % (11.5-15.5); Red Blood Count 3.56 m/uL (4.30-5.90); White Blood Count* 3.63 K/uL (4.50-11.00)
[2022-08-13 07:48] LABS: Slide Review Reflex No
[2022-08-13] MEDS: MORPHINE 30 MG TABLET.ER PO ×2 (07:55→20:03)
[2022-08-13 07:59] LABS: Chloride* 106 mmol/L (96-114)
[2022-08-13 08:00] LABS: Potassium* 3.9 mmol/L (3.6-5.1); Sodium* 135 mmol/L (135-149)
[2022-08-13 08:02] LABS: Creatinine* 1.1 mg/dL (0.5-1.5); Est. Creatinine Clearance* 72.05; Estimated Glomerular Filt Rate 74 ml/min
[2022-08-13 08:03] LABS: Blood Urea Nitrogen* 17 mg/dL (7-30); Calcium* 8.2 mg/dL (8.4-10.6); Carbon Dioxide* 26 mmol/L (20-32); Glucose* 87 mg/dL (60-115)
[2022-08-13 08:06] LABS: C Reactive Protein* 1.8 mg/dL (0.5-1.0)
[2022-08-13] MEDS: OMEPRAZOLE 20 MG CAPSULE DR 40 MG PO (09:24)
[2022-08-13] MEDS: AMLODIPINE 10 MG TABLET PO (09:24)
[2022-08-13] MEDS: RIFAXIMIN 550 MG PO ×2 (09:25→20:04)
[2022-08-13] MEDS: SODIUM CHLORIDE 0.9 % (FLUSH) 10 ML SYRINGE 5 ML IVF (09:26)
[2022-08-13 11:00] VITALS: BP 122/92; PULSE 82; RESP 16; TEMP 36.3; O2SAT 99
[2022-08-13] MEDS: HYDROCODONE-ACETAMIN 5-325 MG 1 TAB PO ×2 (11:15→16:37)
[2022-08-13 15:00] VITALS: BP 140/78; PULSE 87; RESP 18; TEMP 35.9; O2SAT 100
--- NOTE | 2022-08-13 15:33 | P.DS_ITS ---
DS: Providers Provider Date Seen: 08/13/22 Date of admission: 08/11/22 09:20 Primary care physician: Nitin Swift MD Admitting Clinician: Irene Bernal MD Attending Physician on discharge: Irene Bernal MD Date of Discharge: 08/13/22 DS: Diagnosis Discharge Diagnosis (1) Osteomyelitis of left foot: Status: Acute Problem details: MRI shows osteomyelitis of the talus in his foot amputation. Wound cultures growing MRSA. No bone culture obtained. No surgical debridement done. He will need vascular surgery involvement to determine if this foot can be salvaged. Per General surgery here he will need vascular surgery to determine if he is even a candidate for a BKA. As he is not acutely ill I do not believe ongoing IV antibiotics are required. Will put him on doxycycline as suppressive antibiotic to decrease the risk of systemic infection. Patient is requesting returning to [place]. He has already made arrangements to travel there tomorrow. He intends to reestablish care through his primary care doctor and his vascular surgeon. 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 While he is being treated this will need to be nonweightbearing. Patient may need senior living placement. He would like to return to his prior senior living in [place] if needed. (3) Peripheral vascular disease: Status: Chronic Problem details: Reestablish care with vascular surgeon to determine best course of treatment for his osteomyelitis (4) CKD (chronic kidney disease) stage 2, GFR 60-89 ml/min: Status: Acute Problem details: baseline Cr 1.1. Stable here (5) Pancytopenia, acquired: Status: Acute Problem details: Likely chronic related to chronic liver disease. Follow inpatient and then outpatient evaluation. Stable here (6) Cirrhosis of liver: Status: Chronic Problem details: Stable and asymptomatic DS: Summary Hospital Course Hospital Course: 67-year-old male admitted to the hospital with a draining wound on his left foot. Left foot is status post Chopart amputation November of 2019. He has been nonweightbearing for 2 and half years and started weight-bearing in May of this year when a prosthesis was designed for him. Recently has had drainage from the incision on his foot. He has not been systemically ill with fever and has not had significant redness. The drainage was cultured and grew MRSA. He was treated initially with Zosyn and vancomycin. Zosyn was discontinued. There is no clinical change in his small drainage from his wound on his foot. He had no other complications during his hospital stay. He was noted to have mild pancytopenia and this was stable. Renal function was stable. After long discussion about the difficulties in managing his current wound no clear decision about his preferred course of treatment was made. The only clear decision was that he had indicated that he want to return to [place] where he had previously gotten all of his other healthcare. I felt was reasonable to return to [place] and reestablish care with his primary care doctor and his vascular surgeon. I indicated that we have diagnosis problem of osteomyelitis but his current treatment will not cure his problem and he will need a better plan to manage his osteomyelitis and likely this will involve surgery. Status at Discharge Functional status at discharge: wheelchair bound Overall status at discharge: patient is back to baseline Time Spent with Patient Time attestation: Total time spent providing and/or coordinating discharge services: Time spent: Greater than 30 minutes Exam Narrative: Exam Narrative: He is alert in no distress. Oriented to his circumstances. Skin changes on both lower extremities consistent with chronic vascular disease. No significant erythema. Small amount of serous drainage from his left foot amputation. Const: Vital Signs, click to edit/add: Vital Signs - 24 hr 08/12/22 19:00 08/12/22 23:00 08/12/22 23:00 Temperature 97.6 F 97.6 F Pulse Rate [Pulse Oximeter] 68 72 72 Respiratory Rate 16 16 16 Blood Pressure [Le ft Arm] 132/81 127/71 Pulse Oximetry 98 98 Oxygen Delivery Me thod Room Air Room Air 08/13/22 03:00 08/13/22 07:00 08/13/22 07:00 Temperature 97.6 F 97.6 F Pulse Rate [Pulse Oximeter] 65 62 62 Respiratory Rate 16 16 16 Blood Pressure [Le ft Arm] 125/71 146/77 H Pulse Oximetry 98 95 Oxygen Delivery Me thod Room Air Room Air 08/13/22 11:00 Temperature 97.4 F L Pulse Rate [Pulse Oximeter] 82 Respiratory Rate 16 Blood Pressure [Le ft Arm] 122/92 H Pulse Oximetry [facility] Documenting provider has reviewed patient's vital signs: yes DS: Data Data Completed and Pending Labs on day of discharge: Labs from last 24 hours 08/13/22 08/13/22 07:35 07:35 WBC 3.63 L RBC 3.56 L Hgb 11.3 L Hct 33.6 L MCV 94 MCH 32 MCHC 34 RDW Coeff of Isabel 14.6 Plt Count 73 L Neut % (Auto) 62.8 Lymph % (Auto) 27.8 [place] % (Auto) 6.6 Eos % (Auto) 2.2 Baso % (Auto) 0.3 Neut # (Auto) 2.30 Lymph # (Auto) 1.00 [place] # (Auto) 0.20 Eos # (Auto) 0.10 Baso # (Auto) 0.00 Abs Immat Gran (auto) 0.01 Sodium 135 Potassium 3.9 Chloride 106 Carbon Dioxide 26 BUN 17 Creatinine 1.1 Estimated Creat Clear 72.05 Estimated GFR 74 Glucose 87 Calcium 8.2 L C-Reactive Protein 1.8 H Preliminary micro results at discharge 08/10/22 15:41 Blood Culture - Preliminary Blood NO GROWTH AFTER 48 HOURS 08/10/22 15:41 Blood Culture - Preliminary Blood NO GROWTH AFTER 48 HOURS Discharge Plan Discharge Disposition: Home, Self-Care Date of Admission: 08/11/22 09:20 Consulting Providers: Stefany Brown ; David Cox Primary Care Provider: Nitin Swift Condition: Unchanged Anticipated Discharge Date/Time: 08/13/22 14:00 Discharge Medications: New doxycycline hyclate 100 mg tablet 100 mg PO BID Qty: 60 0RF Continued amlodipine [Norvasc] 10 mg tablet 10 mg PO DAILY pantoprazole [Protonix] 40 mg tablet,delayed release (DR/EC) 40 mg PO DAILY rifaximin 550 mg tablet 550 mg PO BID hydrocodone-acetaminophen 5-325 mg tablet 1 tab PO Q4-6H PRN morphine [MS Contin] 30 mg tablet extended release 30 mg PO Q8H ferrous sulfate [Lexa-Time] 325 mg (65 mg iron) tablet 325 mg PO Q OTHER DAY lactulose [Enulose] 10 gram/15 mL solution 30 g PO BID PRN Discharge Orders: Discharge Order (Routine); Ordered 08/13/22 Ordered By: Serge Ng Patient Education: Doxycycline (By mouth), MRSA (Methicillin-Resistant Staphylococcus Aureus) (DC), Osteomyelitis (DC) Activity Restrictions/Additional Instructions: Avoid weight-bearing on left foot. You have osteomyelitis involving the bones of your left foot. I believe you have MRSA infection in those bones. Further evaluation and treatment of this is going to require involvement of a vascular surgeon. When you get back to [place], make an appointment with your primary care doctor and vascular surgeon. I believe you will need surgery to resolve your problem. Probably you will need an amputation below the left knee. I am recommending you take an antibiotic, doxycycline 100 mg twice daily, to suppress the infection so that it does not get worse. This will not cure your foot infection. Activity Level: No Weight Bearing Discharge Diet: Regular Follow Up Appointments: Nitin Swift MD [Primary Care Provider] - Forms: [employer] Info Instructions
--- NOTE | 2022-08-13 16:24 | PC.NURSE ---
PICC to LIDA. Changed to doxycycline today and vanco d/c'd. wound care done today, pt unhappy with how it was dressed and felt as if it would move too much. property underwriter reinforced with tape, property underwriter used packing strip wet with saline soln., 4x4 gauze, ABD, Coban/tape, and covered with Tube agricultural equipment sales manager twised to cover bottom stump. Senior Microstrategy Developer was discussing d/c plan with patient and verbalized social work will be in tomorrow (Sunday). Pt verbalized, no i need to go home today so i can charge my scooter and pack my things. Dr. Ng notified and d/c order in. Pt ride verbalized she could pick him up around 1999. Pt has plane ticket back to [facility] booked for 08/14 at 1530. pt requesting hospital set up transportation for this. property underwriter explained to patient this would not be our role and he would need to figure out his transportation to get himself and his electric scooter to the airport. [facility] information given to patient however pt asked about booking [facility] a day or two in advance or they will not assist. Senior Microstrategy Developer again told patient we are not able to assist with transportation once he is discharged from the hospital. Per Dr. Ng pt needs vascular surgery and has already had workup in [facility]. pt is unable to return to current living situation with friend at [employer] however friend will allow him to stay over night tonight. pt otherwise vitally stable and steady using right leg to pivot transfer to [facility]. Pt continues to non weight bear on left extremity.
[2022-08-13 19:00] VITALS: BP 141/67; PULSE 75; RESP 18; TEMP 36; O2SAT 100
--- NOTE | 2022-08-13 19:33 | PC.NURSE ---
End of shift-- Pt was pleasant and cooperative this evening. VSS and pt is afebrile. SPO2>94% on RA. He c/o pain in his foot which he rated 8 out of 10 and was given [place] with partial relief. Dressing to left leg is C/D/I. LS CTA. He denied nausea and tolerated a regular diet. Picc line was removed intact without difficulty. Pt expressed a great deal of anxiety regarding his pending discharge plans. Report to LETICIA Suggs.
[2022-08-13] MEDS: ENOXAPARIN 40 MG/0.4 ML INJ SUBCUT (20:03)
--- NOTE | 2022-08-13 20:27 | PC.NURSE ---
Alert and oriented x4. Patient discharged tonight. Administered all bedtime medications and given 1st dose of Doxycycline. Home supply medications also given to patient. Went through discharge instructions and patient stated understanding. Explained about where to get abx for use after discharge. Paper work given to patient. Patient was stable at discharge
== END 2022-08-13 20:30 | disposition home or self-care (01) | DRG 540 ==
LOC: ED 17:23 → MEDSURG 17:54
PROVIDERS: Family Medicine; Admitting Provider Family Medicine; Emergency Provider Family Medicine; PCP Family Medicine; Visit Provider Family Medicine
DX: M86.172 Other acute osteomyelitis, left ankle and foot (principal); T87.44 Infection of amputation stump, left lower extremity; D61.818 Other pancytopenia; L03.116 Cellulitis of left lower limb; B95.62 Methicillin resistant Staphylococcus aureus infection as the cause of diseases classified elsewhere; I73.9 Peripheral vascular disease, unspecified; G89.29 Other chronic pain; K74.60 Unspecified cirrhosis of liver; D22.5 Melanocytic nevi of trunk; I12.9 Hypertensive chronic kidney disease with stage 1 through stage 4 chronic kidney disease, or unspecified chronic kidney disease; N18.2 Chronic kidney disease, stage 2 (mild); Z89.421 Acquired absence of other right toe(s)
CPT/HCPCS: 36410; 36415; 36573; 71045; 73590; 73718; 76937; 80048; 80053; 83605; 84145; 85025; 86140; 87040; 87070; 87186; 87635; 93005; 94761; 97110; 97161; 97165; 97530; 99284; 99285; A4221; A9270; C1751; G0378; J1650; J2543; J3370; J7050; J7120